=== PATIENT | female | born 1950 | race Caucasian/White ===

== ENCOUNTER 2016-03-31 15:10 | Emergency (ER) | payer MEDICARE, OTHER ==
[~2016-03-31] VITALS: Ht 157.5 cm; Wt 59.0 kg
[~2016-03-31 15:10] MED LIST: ALBUTEROL SULF8.5 GM INH; DOXYCYCLINE MO100 MG ORAL; MEDROL DOSEPAK4 MG ORAL; PROMETHAZINE-D118 ML ORAL
[2016-03-31 15:32] VITALS: BP 121/66
[2016-03-31] MEDS ORDERED: CLINDAMYCIN HC300 MG ORAL (15:53)
[2016-03-31] MEDS ORDERED: Clindamycin 150mg cap ORAL ONE (16:00)
--- NOTE | 2016-03-31 16:38 | Emergency Room Report ---
History of Present Illness General Chief Complaint: Skin Rash/Abscess Source: Patient Present Illness HPI 65-year-old female presents to ED with redness and drainage from the right middle finger. States symptoms started 4 days ago. Not sure how it started. States that there is a infection that she started to drain. Patient pushed on the finger. States there is continued drainage. Notes some redness. Denies any fevers or chills. Denies any pain. No other aggravating relieving factors. Denies any other associated symptoms Allergies: Coded Allergies: No Known Allergies (Verified Allergy, Unknown, 10/25/07) Patient History Past Medical History: psych hx Past Surgical History: none Pertinent Family History: none Social History: Denies: alcohol use, drug use, smoking Now: No Immunizations: UTD Reviewed Nursing Documentation: PMH: Agreed, PSxH: Agreed Nursing Documentation-PMH Past Medical History: No History, Except For History Of Psychiatric Problem: Yes - PSYCH Review of Systems All Other Systems: negative except mentioned in HPI Physical Exam Vital Signs Date Time Temp Pulse Resp B/P Pulse Ox O2 Delivery O2 Flow Rate FiO2 03/31/16 15:24 98.1 72 20 121/66 98 Room Air Sp02 EP Interpretation: reviewed, normal General Appearance: no apparent distress, alert, GCS 15, non-toxic Head: normocephalic Eyes: bilateral eye PERRL, bilateral eye normal inspection ENT: normal ENT inspection Neck: normal inspection Respiratory: normal inspection Cardiovascular #1: normal inspection Gastrointestinal: normal inspection Rectal: deferred Genitourinary: no CVA tenderness Musculoskeletal: swelling - swelling erythema R middle finger. some drainage noted. Neurologic: alert, oriented x3, responsive, motor strength/tone normal, sensory intact, speech normal Psychiatric: normal inspection Skin: other - erythema/draianage R middle finger Lymphatic: normal inspection Medical Decision Making Diagnostic Impression: Primary Impression: Abscess of finger Qualified Codes: L02.511 - Cutaneous abscess of right hand ER Course Hospital Course 65-year-old female presents to ED with the right middle finger redness and swelling Differential-abscess, cellulitis, paronychia Clinical course Patient placed on stretcher. After initial history and exam reveals an elderly female in no acute distress. On exam. Erythema and induration to the right middle finger over the PIP joint. there is some discharge noted. i used manual pressure to express more discharge. wound cleaned and irrigated Given clindamycin in ED Dressing applied Diagnosis - abscess of finger Stable and discharged to home with prescription for Clindamycin. Wound Care instructions given. Followup with PMD. Return to ED if any signs of infection develop Last Vital Signs Date Time Temp Pulse Resp B/P Pulse Ox O2 Delivery O2 Flow Rate FiO2 03/31/16 15:32 98.1 74 20 121/66 98 Room Air Status: improved Disposition: HOME, SELF-CARE Condition: Stable Scripts Clindamycin Hcl (CLINDAMYCIN HCL) 300 Mg Capsule 300 MG ORAL THREE TIMES A DAY, #21 CAP Prov: MIGUEL SAENZ M.D. 03/31/16 Patient Instructions: Abscess MIGUEL SAENZ M.D. Mar 31, 2016 16:38
[2016-03-31 16:40] VITALS: BP 121/66
== END 2016-03-31 16:30 | disposition home or self-care (01) ==
LOC: EMR 15:49
DX: L02.511 Cutaneous abscess of right hand (principal); Z86.59 Personal history of other mental and behavioral disorders
CPT/HCPCS: 99283

== ENCOUNTER 2016-04-22 16:32 | Emergency (ER) | payer MEDICARE, OTHER ==
[~2016-04-22] VITALS: Ht 162.6 cm; Wt 53.5 kg
[~2016-04-22 16:32] MED LIST changes: +CLINDAMYCIN HC300 MG ORAL
[2016-04-22 16:47] VITALS: BP 126/65
[2016-04-22] MEDS ORDERED: Ipratropium 0.02% Inh Soln 2.5ml UD HHN ONE (17:00)
[2016-04-22] MEDS ORDERED: Albuterol ud Inhalation HHN ONE (17:00)
[2016-04-22 17:50] VITALS: BP 124/70
--- NOTE | 2016-04-22 17:50 | Emergency Room Report ---
History of Present Illness General Chief Complaint: Skin Rash/Abscess Source: Patient Present Illness HPI 65 YO female presents to the ED c/o dry cough without fever x 1 week. Pt. also states " I have a calcified mole that needs to be removed." . Pt also c/o rash in the left ear with dryness, and crusting/flaking x 4 days, denies pain or d/c other than crusting. Pt. Denies pain, rhinorrhea, or nasal congestion. The patient has a history of bronchitis and states that when seen in the past she did not fill her albuterol inhaler because she did not want to drive all the way to the pharmacy. Patient states that she did not relates that there was a pharmacy right across the street here. Patient previously was a pack-a- day smoker and states that since her last visit she has since quit/reduced her smoking to intermittently 2 cigarettes per week. Patient denies recent travel or ill contacts. Patient states she is up-to-date with vaccinations. Denies CP , Palpitations, LOC, AMS, dizziness, Changes in Vision, Sensation, paresthesias , or a sudden severe headache. Allergies: Coded Allergies: No Known Allergies (Verified Allergy, Unknown, 10/25/07) Patient History Past Medical History: see triage record Past Surgical History: none Pertinent Family History: none Social History: Reports: smoking - previous 1 pack per day, now 2 cigs /week Now: No Immunizations: UTD Reviewed Nursing Documentation: PMH: Agreed, PSxH: Agreed Nursing Documentation-PMH Hx COPD: Yes - BRONCHITIS Review of Systems All Other Systems: negative except mentioned in HPI Physical Exam Vital Signs Date Time Temp Pulse Resp B/P Pulse Ox O2 Delivery O2 Flow Rate FiO2 04/22/16 16:35 98.6 76 15 126/65 96 Room Air Sp02 EP Interpretation: reviewed, normal General Appearance: no apparent distress, alert, GCS 15, non-toxic Head: normocephalic, atraumatic Eyes: bilateral eye PERRL, bilateral eye normal inspection ENT: hearing grossly normal, normal pharynx, no angioedema, normal voice, other - left canal and conche has white crusting noted, mild maceration visualized in the left canal, durring otoscopy and PE pt. pulled away several times grimmacing, suspicious for tenderness. the right ear is WNL, and was easily visualized without suggestion of tenderness. both TM's were WNL Neck: full range of motion, supple/symm/no masses Respiratory: chest non-tender, lungs clear, normal breath sounds, speaking full sentences Cardiovascular #1: regular rate, rhythm, no edema Musculoskeletal: gait/station normal, normal range of motion, non-tender, no calf tenderness Neurologic: alert, oriented x3, responsive, sensory intact, speech normal Psychiatric: memory normal, mood/affect normal, no suicidal/homicidal ideation , other Skin: normal color, no rash, warm/dry, well hydrated, other - Pt. has a mole on the right anterior leg that is dry and scaly approximately 0.5cm in diameter with well demarcated borders. no evidence of infection. Lymphatic: no adenopathy Medical Decision Making PA Attestation Dr. Holt is my supervising Physician whom patient management has been discussed with. Diagnostic Impression: Primary Impression: Bronchitis Additional Impressions: Rash and other nonspecific skin eruption Otitis externa, acute eczematoid Qualified Codes: H60.542 - Acute eczematoid otitis externa, left ear ER Course ----This pt. was familiar to me as I have seen her on a previous visit where she left upset feeling that I made a disgusted face prior to d/c-ing her, I notified Charge nurse that pt. may want to see a different provider, Upon initial HPI and PE, Pt. appeared mildly distrustful however still allowed me to be her provider for this visit. Pt. presents to the ED c/o dry cough without fever x 1 week. Pt. also states " I have a calcified mole that needs to be removed." -Pt also c/o rash in the left ear with dryness, and crusting/flaking x 4 days, denies pain or d/c other than crusting. Ddx considered but are not limited to URI, pneumonia, PE, strep pharyngitis, meningitis, bronchitis, asthma, COPD, Skin irritation, eczema, OM/OE. - D/w pt. that mole removal is not something we routinely do in the Emergency Department. I d/w pt. that after removal of lesions they should be sent for cytology. D/w pt. that her PCP or [facility] would be the appropriate specialists to see regarding removal of her lesion. offered Pt. referrals if needed. Pt declined and said "I have a primary doctor." Vital signs: Pt.is afebrile VS are WNL H&PE are most consistent with bronchitis, and mild otitis externa. ORDERS: none required at this time, the diagnosis is clinical ED INTERVENTIONS: None required at this time. - Albuterol nebulized -Atrovent nebulized - I spent time discussing with patient regarding the prescriptions that she will be given. Patient asked her nurse multiple times as well as myself if I will be working tomorrow, I politely stated I will not be here. Pt stated that "she will return if she gets confused." I reassured pt. that regardless of which provider is working if she has any questions we will be more than happy to clarify. DISCHARGE: At this time pt. is stable for d/c to home. Will provide printed patient care instructions, and any necessary prescriptions. Care plan and follow up instructions have been discussed with the patient prior to discharge. Last Vital Signs Date Time Temp Pulse Resp B/P Pulse Ox O2 Delivery O2 Flow Rate FiO2 04/22/16 17:35 68 18 100 Room Air 04/22/16 16:47 98.6 126/65 Disposition: HOME, SELF-CARE Condition: Stable Scripts D-Methorphan Hb/Prometh Hcl* (PROMETHAZINE-DM SYRUP*) 118 Ml Syrup 5 ML ORAL Q6H Y for For Cough, #118 ML 0 Refills Prov: Teri Stringer 04/22/16 Ciprofloxacin/Hydrocortisone (CIPRO HC OTIC SUSPENSION) 10 Ml Drops.susp 3 DROP OT BID for 5 Days, #10 ML Prov: Teri Stringer 04/22/16 Prednisone* (PREDNISONE*) 20 Mg Tablet 40 MG ORAL DAILY for 5 Days, TAB Prov: Teri Stringer 04/22/16 Albuterol Sulfate* (ALBUTEROL SULFATE MDI*) 8.5 Gm Hfa.aer.ad 2 PUFF INH Q3H, #1 INH 0 Refills Prov: Teri Stringer 04/22/16 Patient Instructions: Acute Bronchitis, [id number] Additional Instructions: Take medications as directed. Follow up with PCP in 3-5 days Return sooner to ED if new symptoms occur, or current symptoms become worse. Teri Stringer Apr 22, 2016 17:49
[2016-04-22] MEDS ORDERED: CIPRO HC OTIC S10 M1 OT (17:52)
[2016-04-22] MEDS ORDERED: PREDNISONE20 MG ORAL (17:52)
[2016-04-22] MEDS ORDERED: ALBUTEROL SULF8.5 GM INH (17:52)
[2016-04-22] MEDS ORDERED: PROMETHAZINE-D118 ML ORAL (17:52)
[2016-04-22 18:08] VITALS: BP 124/70
== END 2016-04-22 19:00 | disposition home or self-care (01) ==
LOC: EMR 18:45
DX: J40 Bronchitis, not specified as acute or chronic (principal); R21 Rash and other nonspecific skin eruption; H60.542 Acute eczematoid otitis externa, left ear; F17.200 Nicotine dependence, unspecified, uncomplicated
CPT/HCPCS: 94640; 94664; 99284

== ENCOUNTER 2016-07-22 15:19 | Emergency (ER) | payer MEDICARE, OTHER ==
[~2016-07-22] VITALS: Ht 160 cm; Wt 51.7 kg
[~2016-07-22 15:19] MED LIST changes: +CIPRO HC OTIC S10 M1 OT; +PREDNISONE20 MG ORAL
[2016-07-22 15:52] VITALS: BP 117/77
[2016-07-22] MEDS ORDERED: IBUPROFEN600 MG ORAL (16:35)
[2016-07-22 16:49] VITALS: BP 124/81
--- NOTE | 2016-07-22 17:37 | Diagnostic Imaging Report ---
Indication: PAIN Technique: 3 views of the right knee Comparison: None Findings:No acute fractures. No dislocations. No suprapatellar effusion. Ossified fabella-normal variant Impression:Negative
--- NOTE | 2016-07-22 21:28 | Emergency Room Report ---
History of Present Illness General Chief Complaint: Multiple Trauma/Fall Source: Patient Present Illness [facility] The patient is a 65-year-old female presenting with left wrist and right knee pain after falling yesterday. The patient states that she was walking, tripped on her own shoe, and fell. She denies hitting her head or loss of consciousness. Pain is described as a 4-10 dull ache to both areas and does not radiate. Pain worse with touch and movement. She denies prior injury to these areas. She denies any other symptoms including nausea, vomiting, fever, chills, headache, dizziness, chest pain, shortness of breath, numbness or tingling Allergies: Coded Allergies: No Known Allergies (Verified Allergy, Unknown, 10/25/07) Patient History Past Medical History: see triage record Pertinent Family History: none Reviewed Nursing Documentation: PMH: Agreed, PSxH: Agreed Nursing Documentation-PMH Past Medical History: No History, Except For Hx COPD: Yes - BRONCHITIS History Of Psychiatric Problem: Yes - insomnia Review of Systems All Other Systems: negative except mentioned in HPI Physical Exam Vital Signs Date Time Temp Pulse Resp B/P Pulse Ox O2 Delivery O2 Flow Rate FiO2 07/22/16 15:39 97.9 81 18 117/77 100 Room Air Sp02 EP Interpretation: reviewed, normal General Appearance: no apparent distress, alert, GCS 15, non-toxic Head: normocephalic, atraumatic Eyes: bilateral eye PERRL, bilateral eye normal inspection ENT: hearing grossly normal, normal pharynx, no angioedema, normal voice Neck: full range of motion, supple/symm/no masses Respiratory: chest non-tender, lungs clear, normal breath sounds, speaking full sentences Cardiovascular #1: regular rate, rhythm, no edema Musculoskeletal: normal range of motion, tender - TTP over R knee patella and L mid wrist Neurologic: alert, oriented x3, responsive, motor strength/tone normal, sensory intact, normal gait, speech normal Psychiatric: judgement/insight normal, memory normal, mood/affect normal, no suicidal/homicidal ideation Skin: normal color, no rash, warm/dry, well hydrated, abrasions - R anterior knee Lymphatic: no adenopathy Medical Decision Making PA Attestation Dr. Sweeney is my supervising physician. Patient management was discussed with my supervising physician Diagnostic Impression: Primary Impression: Contusion of wrist, left Additional Impression: Contusion of knee, right ER Course The patient is a 65-year-old female presenting with left wrist and right knee pain Ddx considered include but not limited to sprain/strain, fracture, contusion Physical: Vitals are within normal limits. NAD Left wrist: There is tenderness to palpation over the mid palmar aspect. No obvious deformity. No ecchymosis. Full active range of motion Right knee: There is an abrasion over the anterior aspect. Full active range of motion. Normal gait. Tenderness to palpation over the patella X-ray of the wrist and knee are unremarkable She'll be discharged home with a prescription for Motrin and will followup with PMD. ER precautions are given Other X-Ray Diagnostic Results Other X-Ray Diagnostic Results #1: X-Ray Ordered: L wrist Date: Jul 22, 2016 EP Interpretation: Yes Findings: no fractures, no dislocation, no soft tissue swelling Number of Views: 3 PA Scribe Text I am acting as scribe for my supervising physician. My supervising physician's interpretation of the L wrist xrays are there are no fractures, dislocations or soft tissue swelling. Other X-Ray Diagnostic Results #2: X-Ray Ordered: R knee Date: Jul 22, 2016 EP Interpretation: Yes Findings: no fractures, no dislocation, no soft tissue swelling Number of Views: 3 PA Scribe Text I am acting as scribe for my supervising physician. My supervising physician's interpretation of the R knee xrays are there are no fractures, dislocations or soft tissue swelling. Last Vital Signs Date Time Temp Pulse Resp B/P Pulse Ox O2 Delivery O2 Flow Rate FiO2 07/22/16 16:49 97.8 79 18 124/81 100 Room Air Status: improved Disposition: HOME, SELF-CARE Condition: Improved Scripts Ibuprofen* (MOTRIN*) 600 Mg Tablet 600 MG ORAL Q8H Y for For Pain, #30 TAB 0 Refills Prov: JO ANN HUGHES 07/22/16 Patient Instructions: Contusion Additional Instructions: I discussed my findings with the patient. All questions and concerns have been answered. Treatment and medication compliance have been addressed. I advised the patient that they need to follow up with PMD in 3-5 days. Return to ED if pain remains or worsens, numbness or tingling occurs, new rash is noticed, fever is noticed, or if needed for any reason. Patient verbalized understanding of discharge instructions. JO ANN HUGHES Jul 22, 2016 21:28
--- NOTE | 2016-07-23 08:32 | Diagnostic Imaging Report ---
Clinical Indication:PAIN Technique: 3 views of the left wrist Comparison: None Findings: Bones are osteoporotic. No acute fractures. No dislocations. Joint spaces are preserved Impression: Osteoporosis. No acute process
== END 2016-07-22 16:51 | disposition home or self-care (01) ==
LOC: EMR 16:00
DX: S60.212A Contusion of left wrist, initial encounter (principal); S80.01XA Contusion of right knee, initial encounter; S80.211A Abrasion, right knee, initial encounter; W01.0XXA Fall on same level from slipping, tripping and stumbling without subsequent striking against object, initial encounter; Y92.89 Other specified places as the place of occurrence of the external cause
CPT/HCPCS: 99284

== ENCOUNTER 2016-08-18 15:53 | Emergency (ER) | payer MEDICARE, OTHER ==
[~2016-08-18] VITALS: Ht 165.1 cm; Wt 52.6 kg
[~2016-08-18 15:53] MED LIST changes: +IBUPROFEN600 MG ORAL
--- NOTE | 2016-08-18 16:24 | Emergency Room Report ---
History of Present Illness General Chief Complaint: Medication Refill Source: Patient Present Illness HPI 65 YO female presents to the ED Requesting refill of her previously prescribed medications for bronchitis. Patient reports cough with intermittent clear sputum production. Patient denies fevers or chills. Patient reports intermittent episodes of wheezing. Patient states that she previously was attempting to reduce her tobacco use however has been unsuccessful and is requesting Nicorette gum. Patient reports smoking approximately half pack per day. Patient denies swelling of the lower extremities, abdominal pain, rash, skin color changes, shortness of breath, or dyspnea on exertion. Patient also states that she has had recurrence of dry scaly rash of the left ear that was previously relieved by treatment with prescribed eardrops. Patient denies pain other than minimal tenderness with scratching, denies discharge from the ear, denies tinnitus or changes in hearing. Denies CP, Palpitations, LOC, AMS, dizziness, Changes in Vision, Sensation, paresthesias, or a sudden severe headache. Allergies: Coded Allergies: No Known Allergies (Verified Allergy, Unknown, 10/25/07) Patient History Past Medical History: see triage record Past Surgical History: none Pertinent Family History: none Now: No Immunizations: UTD Reviewed Nursing Documentation: PMH: Agreed, PSxH: Agreed Nursing Documentation-PMH Past Medical History: No Stated History Hx COPD: Yes - BRONCHITIS Review of Systems All Other Systems: limited - poor pt. cooperation, limited detail in answering questions, and easily distracted. Physical Exam Vital Signs Date Time Temp Pulse Resp B/P Pulse Ox O2 Delivery O2 Flow Rate FiO2 08/18/16 16:03 98.1 76 16 118/74 98 Room Air Sp02 EP Interpretation: reviewed, normal General Appearance: no apparent distress, alert, GCS 15, non-toxic Head: normocephalic, atraumatic Eyes: bilateral eye PERRL, bilateral eye normal inspection ENT: hearing grossly normal, normal pharynx, no angioedema, normal voice, uvula midline, other - Left external ear, is dry and scaly with some involvement of the left ear canal, TM is WNL, right Ear canal and TM are WNL. Neck: full range of motion, supple/symm/no masses Respiratory: chest non-tender, lungs clear, normal breath sounds, no respiratory distress, no accessory muscle use, no wheezing, speaking full sentences Cardiovascular #1: regular rate, rhythm, no edema Musculoskeletal: back normal, gait/station normal, normal range of motion, non- tender Neurologic: alert, oriented x3, responsive, motor strength/tone normal, sensory intact, speech normal Psychiatric: memory normal, other - Pt is not detailed with answers, and provides very limited information, hypervigilance is noted, short attention span , and jumps from topic to topic . Skin: normal color, no rash, warm/dry, well hydrated Lymphatic: no adenopathy Medical Decision Making PA Attestation Dr. Maxwell is my supervising Physician whom patient management has been discussed with. Diagnostic Impression: Primary Impression: Medication refill Additional Impression: Otitis externa, acute eczematoid Qualified Codes: H60.542 - Acute eczematoid otitis externa, left ear ER Course 65 YO female presents to the ED Requesting refill of her previously prescribed medications for bronchitis. Patient reports cough with intermittent clear sputum production. Patient denies fevers or chills. Patient reports intermittent episodes of wheezing. Patient states that she previously was attempting to reduce her tobacco use however has been unsuccessful and is requesting Nicorette gum. Patient reports smoking approximately half pack per day. Patient denies swelling of the lower extremities, abdominal pain, rash, skin color changes, shortness of breath, or dyspnea on exertion. Patient also states that she has had recurrence of dry scaly rash of the left ear that was previously relieved by treatment with prescribed eardrops. Patient denies pain other than minimal tenderness with scratching, denies discharge from the ear, denies tinnitus or changes in hearing. Ddx considered but are not limited to URI, pneumonia, PE, strep pharyngitis, meningitis. Vital signs: Pt.is afebrile VS are WNL H&PE are most consistent with chronic bronchitis with need for medication refills, in addition to request for adjuncts for quitting smoking. Pt. also has re-occurrence of previously treated otitis externa. ORDERS: none required at this time, the diagnosis is clinical ED INTERVENTIONS: None required at this time. - I do not suspect an emergent condition at this time. with current presentation pt. is stable for close outpatient follow up. - I Have had this patient on 2 previous occasions where she initially was diagnosed with bronchitis after chest x-ray showed flattening of diaphragms and increased lung expansion. During previous visits patient was either dissatisfied with her provider, or was difficult with nursing staff. I was notified by triage nurse prior to using patient that the patient was refusing to answer questions and was requesting to only speak to the PA. I suspect underlying psychiatric disorder, and encourage pt. to establish herself with a PCP. Pt. although hypervigilant seemed to have been satisfied with her evaluation today in the ED. - D/w pt. proper follow up with PCP, and to return to the ED with worsening or new symptoms. DISCHARGE: At this time pt. is stable for d/c to home. Will provide printed patient care instructions, and any necessary prescriptions. Care plan and follow up instructions have been discussed with the patient prior to discharge. Last Vital Signs Date Time Temp Pulse Resp B/P Pulse Ox O2 Delivery O2 Flow Rate FiO2 08/18/16 16:03 98.1 76 16 118/74 98 Room Air Disposition: HOME, SELF-CARE Condition: Stable Scripts Nicotine Polacrilex (NICORETTE) 2 Mg Gum 2 MG BC Q4HR for Per rx protocol for 30 Days, PACK Prov: Teri Stringer 08/18/16 Ciprofloxacin/Hydrocortisone (CIPRO HC OTIC SUSPENSION) 10 Ml Drops.susp 10 ML OT BID for 5 Days, #10 ML Prov: Teri Stringer 08/18/16 D-Methorphan Hb/Prometh Hcl* (PROMETHAZINE-DM SYRUP*) 118 Ml Syrup 5 ML ORAL Q6H Y for For Cough, #118 ML 0 Refills Prov: eTri Stringer 08/18/16 Albuterol Sulfate* (ALBUTEROL SULFATE MDI*) 8.5 Gm Hfa.aer.ad 2 PUFF INH Q3H, #1 INH 3 Refills Prov: Teri Stringer 08/18/16 Patient Instructions: Medicine Refill at the Emergency Department Additional Instructions: Take medications as directed. Follow up with PCP in 3-5 days Return sooner to ED if new symptoms occur, or current symptoms become worse. - Please note that this Emergency Department Report was dictated using [employer] manager technology software, occasionally this can lead to erroneous entry secondary to interpretation by the dictation equipment. Teri Stringer August 18, 2016 16:24
[2016-08-18] MEDS ORDERED: ALBUTEROL SULF8.5 GM INH (16:27)
[2016-08-18] MEDS ORDERED: CIPRO HC OTIC S10 M1 OT (16:27)
[2016-08-18] MEDS ORDERED: PROMETHAZINE-D118 ML ORAL (16:27)
[2016-08-18] MEDS ORDERED: NICORETTE2 MG BC (16:30)
[2016-08-18 16:35] VITALS: BP 118/74
== END 2016-08-18 16:40 | disposition home or self-care (01) ==
LOC: EMR 16:38
DX: Z76.0 Encounter for issue of repeat prescription (principal); H60.542 Acute eczematoid otitis externa, left ear; J44.9 Chronic obstructive pulmonary disease, unspecified
CPT/HCPCS: 99284

== ENCOUNTER 2017-06-06 14:05 | Emergency (ER) | payer MEDICARE, OTHER ==
[~2017-06-06] VITALS: Ht 160 cm; Wt 57.2 kg
[~2017-06-06 14:05] MED LIST changes: +NICORETTE2 MG BC
[2017-06-06 14:26] VITALS: BP 129/83
[2017-06-06] MEDS ORDERED: AMOXICILLIN500 MG ORAL (14:54)
[2017-06-06] MEDS ORDERED: ALBUTEROL SULF8.5 GM INH (14:54)
[2017-06-06] MEDS ORDERED: PROMETHAZINE-C118 M1 ORAL (14:54)
[2017-06-06 14:59] VITALS: BP 129/83
--- NOTE | 2017-06-06 15:11 | Emergency Room Report ---
History of Present Illness General Chief Complaint: Upper Respiratory Illness Source: Patient Present Illness HPI 66-year-old female presents ED for evaluation. Patient complaining of cough 1 month. Cough is productive with yellowish phlegm. He notes history of smoking. Notes history of COPD. Denies chest pain or shortness of breath. Denies sick contacts or recent travel. Afebrile. No other aggravating or relieving factors. Denies any other associated symptoms Allergies: Coded Allergies: No Known Allergies (Verified Allergy, Unknown, 10/25/07) Patient History Past Medical History: COPD Past Surgical History: none Pertinent Family History: none Social History: Denies: smoking, alcohol use, drug use Now: No Immunizations: UTD Reviewed Nursing Documentation: PMH: Agreed, PSxH: Agreed Nursing Documentation-PMH Hx COPD: Yes - BRONCHITIS Review of Systems All Other Systems: negative except mentioned in HPI Physical Exam Vital Signs Date Time Temp Pulse Resp B/P (MAP) Pulse Ox O2 Delivery O2 Flow Rate FiO2 06/06/17 14:16 98.9 85 16 129/83 96 Room Air 99.0 Sp02 EP Interpretation: reviewed, normal General Appearance: no apparent distress, alert, GCS 15, non-toxic Head: normocephalic, atraumatic Eyes: bilateral eye normal inspection, bilateral eye PERRL ENT: hearing grossly normal, normal pharynx, no angioedema, normal voice Neck: full range of motion, supple/symm/no masses Respiratory: chest non-tender, lungs clear, normal breath sounds, speaking full sentences Cardiovascular #1: regular rate, rhythm, no edema Cardiovascular #2: 2+ carotid (R), 2+ carotid (L), 2+ radial (R), 2+ radial (L) , 2+ dorsalis pedis (R), 2+ dorsalis pedis (L) Gastrointestinal: normal bowel sounds, non tender, soft, non-distended, no guarding, no rebound Rectal: deferred Genitourinary: normal inspection, no CVA tenderness Musculoskeletal: back normal, gait/station normal, normal range of motion, non- tender Neurologic: alert, oriented x3, responsive, motor strength/tone normal, sensory intact, speech normal Psychiatric: judgement/insight normal, memory normal, mood/affect normal, no suicidal/homicidal ideation Reflexes: 3+ bicep (R), 3+ bicep (L), 3+ tricep (R), 3+ tricep (L), 3+ knee (R) , 3+ knee (L) Skin: normal color, no rash, warm/dry, well hydrated Lymphatic: no adenopathy Medical Decision Making Diagnostic Impression: Primary Impression: Bronchitis ER Course Hospital Course 66-year-old female presents ED complaining of cough 1 month Differential diagnoses include: URI, pharyngitis, otitis media, asthma Clinical course Patient placed on stretcher. After initial history, physical exam reveals an elderly female in no acute distress. Bilateral TM unremarkable. No pharyngeal erythema. No tonsillar exudates. No lymphadenopathy. lungs clear. abdomen soft. Findings consistent with bronchitis. Given her smoking history and age we will prescribe antibiotics Diagnosis - bronchitis Stable and discharged home with Rx albuterol, promethazine/codeine, amoxicillin. Instructed to followup with PMD. Return to ED if symptoms recur or worsen Last Vital Signs Date Time Temp Pulse Resp B/P (MAP) Pulse Ox O2 Delivery O2 Flow Rate FiO2 06/06/17 14:59 99.0 82 16 129/83 97 Room Air 99.0 Status: improved Disposition: HOME, SELF-CARE Condition: Stable Scripts Amoxicillin* (AMOXIL*) 500 Mg Capsule 500 MG ORAL THREE TIMES A DAY, #21 CAP Prov: MIGUEL SAENZ M.D. 06/06/17 Codeine/Promethazine Hcl* (PROMETHAZINE-CODEINE SYRUP*) 118 Ml Syrup 5 ML ORAL Q4H Y for For Cough, #118 ML 0 Refills Prov: MIGUEL SAENZ M.D. 06/06/17 Albuterol Sulfate* (ALBUTEROL SULFATE MDI*) 8.5 Gm Hfa.aer.ad 2 PUFF INH Q4H Y for cough/wheezing, #1 EA 0 Refills Prov: MIGUEL SAENZ M.D. 06/06/17 Patient Instructions: Chronic Obstructive Pulmonary Disease Exacerbation, Easy- to-Read MIGUEL SAENZ M.D. Jun 06, 2017 15:10
== END 2017-06-06 14:58 | disposition home or self-care (01) ==
LOC: EMR 14:55
DX: J40 Bronchitis, not specified as acute or chronic (principal); J44.9 Chronic obstructive pulmonary disease, unspecified
CPT/HCPCS: 99284

== ENCOUNTER 2017-06-13 14:49 | Emergency (ER) | payer MEDICARE, OTHER ==
[~2017-06-13] VITALS: Ht 160 cm; Wt 52.2 kg
[~2017-06-13 14:49] MED LIST changes: +AMOXICILLIN500 MG ORAL; +PROMETHAZINE-C118 M1 ORAL
[2017-06-13 15:15] VITALS: BP 123/74
[2017-06-13] MEDS ORDERED: Albuterol/Ipratropium 3ml neb HHN ONE (15:30)
--- NOTE | 2017-06-13 15:57 | Emergency Room Report ---
History of Present Illness General Chief Complaint: Flu Like Symptoms Present Illness HPI 66-year-old female presents to the emergency department complaining of persistent cough with mucus production 1 week. Patient states that she was previously evaluated here in the ER and was discharged with cough medications. Patient denies fevers or chills. She denies swelling of the lower extremities. Denies sore throat, ear pain, high fevers, lethargy, neck pain/stiffness, irritability, photophobia dehydration, N/V/D. Denies Cp, Palpitations, LOC, AMS , seizures, paresthesias, or changes in Hearing or vision, no Sudden severe TABOR. Patient also reports recurrence of her eczema on the left ear. Denies tinnitus, ear discharge, pain. Patient has a history of COPD and is a current smoker Allergies: Coded Allergies: No Known Allergies (Verified Allergy, Unknown, 10/25/07) Patient History Past Medical History: see triage record Past Surgical History: none Pertinent Family History: none Social History: Reports: smoking Reviewed Nursing Documentation: PMH: Agreed, PSxH: Agreed Nursing Documentation-PMH Hx COPD: Yes - BRONCHITIS Review of Systems All Other Systems: negative except mentioned in HPI Physical Exam Vital Signs Date Time Temp Pulse Resp B/P (MAP) Pulse Ox O2 Delivery O2 Flow Rate FiO2 06/13/17 14:58 97.1 100 20 123/74 99 Room Air 97.2 Sp02 EP Interpretation: reviewed, normal General Appearance: no apparent distress, alert, GCS 15, non-toxic Head: normocephalic, atraumatic ENT: hearing grossly normal, normal pharynx, normal voice, TMs + canals normal - dry excematous plaques in the left ear/ including the canal. there is no tm involvement. , uvula midline, moist mucus membranes Neck: full range of motion Respiratory: chest non-tender, lungs clear, normal breath sounds, speaking full sentences Cardiovascular #1: regular rate, rhythm, no edema Musculoskeletal: back normal, gait/station normal, normal range of motion, non- tender Neurologic: alert, oriented x3, responsive, motor strength/tone normal, sensory intact, normal gait, speech normal, grossly normal Psychiatric: other - schizoaffective, pt. exhibits odd behavior consistent with previous visits. Skin: normal color, no rash, warm/dry, well hydrated Lymphatic: no adenopathy Medical Decision Making PA Attestation Dr. Maxwell is my supervising Physician whom patient management has been discussed with. Diagnostic Impression: Primary Impression: Bronchitis Additional Impression: Otitis externa, acute eczematoid Qualified Codes: H60.542 - Acute eczematoid otitis externa, left ear ER Course 66-year-old female presents to the emergency department complaining of persistent cough with mucus production 1 week. Patient states that she was previously evaluated here in the ER and was discharged with cough medications. Patient denies fevers or chills. She denies swelling of the lower extremities. Denies sore throat, ear pain, high fevers, lethargy, neck pain/stiffness, irritability, photophobia dehydration, N/V/D. Denies Cp, Palpitations, LOC, AMS , seizures, paresthesias, or changes in Hearing or vision, no Sudden severe TABOR. Patient also reports recurrence of her eczema on the left ear. Denies tinnitus, ear discharge, pain. Patient has a history of COPD and is a current smoker Ddx considered but are not limited to URI, pneumonia, PE, strep pharyngitis, meningitis. Vital signs: Pt.is afebrile VS are WNL H&PE are most consistent with bronchitis ORDERS: -cxr: WNL ED INTERVENTIONS: -Duo Nebs DISCHARGE: At this time pt. is stable for d/c to home. Will provide printed patient care instructions, and any necessary prescriptions. Care plan and follow up instructions have been discussed with the patient prior to discharge. Chest X-Ray Diagnostic Results Chest X-Ray Diagnostic Results : Chest X-Ray Ordered: Yes # of Views/Limited/Complete: 1 View Indication: Other - hx of productive cough. EP Interpretation: Yes PA Xray: Interpretation reviewed, by supervising MD, and agrees with findings. Interpretation: no consolidation, no effusion, no pneumothorax Impression: No acute disease Electronically Signed by: Teri Stringer PA-C Last Vital Signs Date Time Temp Pulse Resp B/P (MAP) Pulse Ox O2 Delivery O2 Flow Rate FiO2 06/13/17 15:15 97.2 75 20 123/74 99 Room Air 97.2 Disposition: HOME, SELF-CARE Condition: Stable Scripts Albuterol Sulfate* (ALBUTEROL SULFATE MDI*) 8.5 Gm Hfa.aer.ad 2 PUFF INH Q4H, #1 INH 0 Refills Prov: Teri Stringer 06/13/17 Ciprofloxacin/Hydrocortisone (CIPRO HC OTIC SUSPENSION) 10 Ml Drops.susp 2 ML OT BID, #10 ML Prov: Teri Stringer 06/13/17 Guaifenesin (Guaifenesin) 1,200 Mg Tab.er.12h 1200 MG PO BID, #20 TAB Prov: Teri Stringer 06/13/17 Patient Instructions: Acute Bronchitis, [id number] Additional Instructions: Take medications as directed. Follow up with a Primary Care Provider in 3-5 days, even if your symptoms have resolved. --Please review list of primary care clinics, if you do not already have a primary care provider Return sooner to ED if new symptoms occur, or current symptoms become worse. - Please note that this Emergency Department Report was dictated using Dayakbroaching machine repairer technology software, occasionally this can lead to erroneous entry secondary to interpretation by the dictation equipment. Teri Stringer Jun 13, 2017 15:57
[2017-06-13] MEDS ORDERED: CIPRO HC OTIC S10 M1 OT (16:18)
[2017-06-13] MEDS ORDERED: ALBUTEROL SULF8.5 GM INH (16:18)
[2017-06-13] MEDS ORDERED: GUAIFENESIN1200 MG PO (16:18)
[2017-06-13 16:22] VITALS: BP 123/74
--- NOTE | 2017-06-13 17:21 | Diagnostic Imaging Report ---
Indication: Cough Technique: One view of the chest Comparison: 02/04/2016 Findings: Lungs and pleural spaces are clear. Heart size is normal. The aorta is tortuous and calcified. No significant interim change Impression: No acute process
== END 2017-06-13 16:28 | disposition home or self-care (01) ==
LOC: EMR 15:43
DX: J40 Bronchitis, not specified as acute or chronic (principal); H60.542 Acute eczematoid otitis externa, left ear; J44.9 Chronic obstructive pulmonary disease, unspecified; F17.200 Nicotine dependence, unspecified, uncomplicated
CPT/HCPCS: 71045; 94640; 94664; 99284; J7620

== ENCOUNTER 2017-06-22 13:26 | Emergency (ER) | payer MEDICARE, OTHER ==
[~2017-06-22] VITALS: Ht 160 cm; Wt 54.4 kg
[~2017-06-22 13:26] MED LIST changes: +GUAIFENESIN1200 MG PO
[2017-06-22] MEDS ORDERED: TRAZODONE HCL50 MG ORAL (13:36)
[2017-06-22 13:39] VITALS: BP 108/73
--- NOTE | 2017-06-22 14:43 | Emergency Room Report ---
History of Present Illness General Chief Complaint: Upper Respiratory Illness Source: Patient Present Illness HPI 66-year-old female presents to the emergency department complaining of productive cough 3 weeks. Patient patient has been here twice in the previous 2 weeks for the same complaint. Patient states that she continues to have symptoms without any change in character. Patient reports some dizziness when coughing and produces mucus easily. Patient is a smoker she smokes daily. Patient states that she had no intentions in following up with primary care or body mechanic because she does not have a primary care doctor and doesn't know where to find one. She states that she did not read the list of primary care free clinics in their addresses that I provided her at the last visit. Denies fevers or chills. Denies swelling of the lower extremities. She denies chest pain, palpitations, loss of consciousness/syncope. Denies vertigo. Allergies: Coded Allergies: No Known Allergies (Verified Allergy, Unknown, 10/25/07) Patient History Past Medical History: see triage record, psych hx - takes haldol Past Surgical History: none Pertinent Family History: none Last Menstrual Period: Post Now: No Reviewed Nursing Documentation: PMH: Agreed; PSxH: Agreed Nursing Documentation-PMH Hx COPD: Yes - BRONCHITIS Review of Systems All Other Systems: negative except mentioned in HPI Physical Exam Vital Signs Date Time Temp Pulse Resp B/P (MAP) Pulse Ox O2 Delivery O2 Flow Rate FiO2 06/22/17 13:32 98.1 90 18 108/73 95 Room Air 98.1 Sp02 EP Interpretation: reviewed, normal General Appearance: no apparent distress, alert, GCS 15, non-toxic Head: normocephalic, atraumatic ENT: hearing grossly normal, normal voice Neck: full range of motion Respiratory: chest non-tender, lungs clear, normal breath sounds, no respiratory distress, no wheezing, speaking full sentences Cardiovascular #1: regular rate, rhythm, no edema, normal capillary refill Musculoskeletal: back normal, gait/station normal, normal range of motion, non- tender Neurologic: alert, oriented x3, responsive, motor strength/tone normal, sensory intact, speech normal, grossly normal Psychiatric: other - Flattened affect. Skin: normal color, no rash, warm/dry, well hydrated Medical Decision Making PA Attestation Dr. mcgregor is my supervising Physician whom patient management has been discussed with. Diagnostic Impression: Primary Impression: COPD with acute bronchitis ER Course 66-year-old female presents to the emergency department complaining of productive cough 3 weeks. Patient patient has been here twice in the previous 2 weeks for the same complaint. Patient states that she continues to have symptoms without any change in character. Patient reports some dizziness when coughing and produces mucus easily. Patient is a smoker she smokes daily. Patient states that she had no intentions in following up with primary care or body mechanic because she does not have a primary care doctor and doesn't know where to find one. She states that she did not read the list of primary care free clinics in their addresses that I provided her at the last visit. Denies fevers or chills. Denies swelling of the lower extremities. She denies chest pain, palpitations, loss of consciousness/syncope. Denies vertigo. Ddx considered but are not limited to URI, pneumonia, PE, strep pharyngitis, meningitis. Vital signs: Pt.is afebrile VS are WNL H&PE are most consistent with: Possibly chronic bronchitis from smoking in addition to being noncompliant with follow-up instructions. No evidence to suggest acute bacterial infection at this time or heart failure. ORDERS: -CXR: 1 View : No effusions, atelectasis or infiltrates normal cardiac size. ED INTERVENTIONS: None required at this time. DISCHARGE: At this time pt. is stable for d/c to home. Will provide printed patient care instructions, and any necessary prescriptions. Care plan and follow up instructions have been discussed with the patient prior to discharge. Chest X-Ray Diagnostic Results Chest X-Ray Diagnostic Results : Chest X-Ray Ordered: Yes # of Views/Limited/Complete: 1 View Indication: Other - Productive Cough x 3 weeks. EP Interpretation: Yes LUIS ANTONIO Xray: Interpretation reviewed, by supervising MD, and agrees with findings. Interpretation: no consolidation, no effusion, no pneumothorax, no acute cardiopulmonary disease Impression: No acute disease Electronically Signed by: Trei Stringer PA-C Last Vital Signs Date Time Temp Pulse Resp B/P (MAP) Pulse Ox O2 Delivery O2 Flow Rate FiO2 06/22/17 13:39 90 18 Room Air 06/22/17 13:39 98.1 108/73 95 98.1 Disposition: HOME, SELF-CARE Condition: Stable Scripts Guaifenesin/Dextromethorphan (Guaifenesin Dm Syrup) 5 Ml Syrup 5 ML ORAL Q8H, #118 ML 0 Refills Prov: Teri Stringer 06/22/17 Levofloxacin* (LEVAQUIN*) 500 Mg Tablet 500 MG ORAL DAILY for 7 Days, #7 TAB Prov: Teri Stringer 06/22/17 Referrals: NOT CHOSEN IPA/MD,REFERRING (PCP) Patient Instructions: Chronic Obstructive Pulmonary Disease, Smoking Cessation , Tips for Success, [id number] Additional Instructions: Take medications as directed. *!!!!!* Follow up with a Primary Care Provider in 3-5 days, recommend SOL[facility] [employer]INEER evaluation *!!!!* --Please review list of primary care clinics, if you do not already have a primary care provider * recommend that you stop smoking. Return sooner to ED if new symptoms occur, or current symptoms become worse. - Please note that this Emergency Department Report was dictated using CitySparknumerical control tool programmer technology software, occasionally this can lead to erroneous entry secondary to interpretation by the dictation equipment. Teri Stringer Jun 22, 2017 14:43
[2017-06-22] MEDS ORDERED: GUAIFENESIN DM118 M1 ORAL ×2 (14:48→15:21)
[2017-06-22] MEDS ORDERED: LEVAQUIN500 MG ORAL ×2 (14:48→15:21)
[2017-06-22 14:53] VITALS: BP 114/76
--- NOTE | 2017-06-22 15:41 | Diagnostic Imaging Report ---
Indication: Off over one month Technique: 2 views of the chest Comparison: Single view chest 06/13/2017 Findings: The lungs and pleural spaces are clear. Heart size is normal. There is an anterior wedge compression fracture deformity of the T12 vertebral body resulting in approximately 40% height loss. There is also suggestion of compression fracture deformity of the L1 vertebral body as well, less well demonstrated Impression: No acute cardiopulmonary process T12 and L1 compression fracture deformities, age indeterminate. Consider MRI for better characterization if clinically relevant
== END 2017-06-22 14:56 | disposition home or self-care (01) ==
LOC: EMR 13:49
DX: J20.9 Acute bronchitis, unspecified (principal); J44.0 Chronic obstructive pulmonary disease with (acute) lower respiratory infection
CPT/HCPCS: 71046; 99284